=== PATIENT | female | born 2000 | race Caucasian/White ===

== ENCOUNTER 2022-08-29 11:15 | Emergency (ER) | payer OTHER, SELFPAY ==
[2022-08-29 11:48] VITALS: BP 128/80; PULSE 105; RESP 18; TEMP 36.7; O2SAT 100
--- NOTE | 2022-08-29 12:32 | ED.URI ---
HPI - URI/Sore Throat General Chief Complaint: Upper Respiratory Infection Stated Complaint: Sore Throat Time Seen by Provider: 08/29/22 12:32 History of Present Illness HPI Narrative: 21 y/o female presented for c/o sore throat worsening for 5 days. States she took amoxicillin without relief then started Augmentin yesterday. Endorses large amount of pus to the left tonsil, and pain with swallowing. Denies sick contacts or recent sexual contacts. Denies sob, wheezing, n/v/d/f/c. She is maintaining secretions. Taking ibuprofen. Related Data Home Medications Medication Instructions Recorded Confirmed amoxicillin 875 mg-potassium 1 tablet PO BID 08/29/22 08/29/22 clavulanate 125 mg tablet drospirenone 3 mg-ethinyl 1 tablet PO DAILY 08/29/22 08/29/22 estradiol 0.02 mg tablet (Loryna (28)) Allergies Allergy/AdvReac Type Severity Reaction Status Date / Time No Known Allergies Allergy Mild Verified 08/29/22 12:24 Review of Systems Review of Systems: CONSTITUTIONAL: Denies body aches, fever, chills, or sweats. EYES: Denies visual changes, redness, or discharge. ENT: Denies rhinorrhea, congestion, or otalgia. CARDIOVASCULAR: Denies chest pain, palpitations, or edema. RESPIRATORY: Denies dyspnea. GASTROINTESTINAL: Denies abdominal pain, nausea, vomiting, or diarrhea. SKIN: Denies rash, itching, or wounds. MUSCULOSKELETAL: Denies back pain, joint pain, or myalgia. NEUROLOGIC: Denies headache Exam Narrative: GENERAL: Ill-appearing, nontoxic EYES: conjunctivae clear ENT: Mucous membranes moist. TMs pearly garcia with normal light reflex bilaterally; no tragal tenderness. Oropharynx erythematous. Tonsils enlarged. Left > Right; Large amount tonsillar exudate. Hot potato voice noted, No drooling, no trismus, uvula midline. No tripod positioning or soft palate swelling. NECK: Supple. left anterior cervical lymphadenopathy CHEST: Clear to auscultation, breath sounds equal. No respiratory distress, speaks in full sentences. HEART: Regular rate and rhythm. SKIN: Warm, dry, no rash. Course Course Emergency Course: Patient is aware of diagnosis, understands and agrees to treatment plan. Anticipatory guidance given. Portions of this record may have been created with voice recognition software Level of Care: Express Care Visit Vital Signs Vital signs: Vital Signs Temperature 98.0 F 08/29/22 11:48 Pulse Rate 105 H 08/29/22 11:48 Respiratory Rate 18 08/29/22 11:48 Blood Pressure 128/80 08/29/22 11:48 Pulse Oximetry 100 08/29/22 11:48 Oxygen Delivery Room Air 08/29/22 11:48 Temperature 98.0 F 08/29/22 11:48 Pulse Rate 105 H 08/29/22 11:48 Respiratory Rate 18 08/29/22 11:48 Blood Pressure 128/80 08/29/22 11:48 Pulse Oximetry 100 08/29/22 11:48 Oxygen Delivery Room Air 08/29/22 11:48 Transfer Transfered to: [place] Transportation: Other (private vehicle) Transfer rationale: Pt is agreeable to transfer. Requests transfer to [facility] via private vehicle. Risks of transportation reviewed with pt including injury, worsening of condition and . v/u. Report called to hospital, spoke with Dr Aguiar, accepting physician. Pt is in stable condition at time of transfer. Advised to remain NPO and go directly to the hospital. MDM - URI/Sore Throat MDM Narrative Medical decision making narrative: Patient presented for c/o sore throat. Patient has been treated with amox, worsening tonsillar swelling and pain with asymmetrical tonsils on exam. Recommend ER transfer. Differential Diagnosis Differential diagnosis: Likely viral infection and pharyngitis Discharge Plan Discharge Clinical Impression: Acute tonsillitis Patient Disposition: Acute Care Hospital Condition: Stable Prescriptions: No Action drospirenone-ethinyl estradiol [Loryna (28)] 3-0.02 mg tablet 1 tablet PO DAILY Follow-up/Referrals: PHYSICIAN,DOG FOOD SHREDDER OPERATOR [Primary Care Provide
== END 2022-08-29 13:00 | disposition short-term general hospital (02) ==
PROVIDERS: Emergency Provider Nurse Practitioner Family
DX: J03.90 Acute tonsillitis, unspecified (principal)
CPT/HCPCS: 99213; G0463

== ENCOUNTER 2022-08-29 13:24 | Emergency (ER) | payer OTHER, SELFPAY ==
--- NOTE | ~2022-08-29 | CT_ITS ---
EXAMINATION: CT soft tissue neck w con DATE: 08/29/2022 18:16 INDICATION: TECHNIQUE: Computed tomography (CT) of the neck was performed with 75 mL Omnipaque-350 intravenous co ntrast. The dose-length product was 395.79 mGy-cm. COMPARISON: None FINDINGS: The thyroid gland is unremarkable. Bilateral somewhat heterogeneous palatine tonsillar enlargement, w ithout a focal well-defined fluid collection. The submandibular and parotid glands are symmetric. S ubmandibular and anterior cervical chain lymphadenopathy. There are no masses identified. The supe rior mediastinum is unremarkable. The airway is unremarkable. Parapharyngeal and pre-glottic fat planes are preserved. Normal enhancing arteries. The orbits are unremarkable. Visualized sinuses and mastoid air cells are well aerated. The lungs are clear. Regional bones are within normal lang its for age. IMPRESSION: 1. No tonsillar abscess. 2. Bilateral palatine tonsillar enlargement and edema. 3. Submandibular and anterior cervical chain lymphadenopathy. Reviewed, dictated and finalized at location K. FACTURING DEVELOPMENT ENGINEER
[2022-08-29 14:20] VITALS: BP 137/77; PULSE 114; RESP 16; TEMP 37.6; O2SAT 100
--- NOTE | 2022-08-29 14:51 | ED.URI ---
HPI - URI/Sore Throat General Chief Complaint: Upper Respiratory Infection Stated Complaint: throat pain Time Seen by Provider: 08/29/22 13:30 History of Present Illness HPI Narrative: -year-old female presents emergency room for evaluation of a sore throat. Has been experiencing with sore throat for 1. Patient told family friend who happened to be a physician that she had a sore throat so without evaluation was given amoxicillin. Patient took that for 3 days and called a family friend saying that her throat was not showing any signs of improvement. This individual then prescribed her course of Augmentin. She has been on p.o. Augmentin for 3 days with no improvement of her symptoms Related Data Home Medications Medication Instructions Recorded Confirmed amoxicillin 875 mg-potassium 1 tablet PO BID 08/29/22 08/29/22 clavulanate 125 mg tablet drospirenone 3 mg-ethinyl 1 tablet PO DAILY 08/29/22 08/29/22 estradiol 0.02 mg tablet (Loryna (28)) Allergies Allergy/AdvReac Type Severity Reaction Status Date / Time No Known Allergies Allergy Mild Verified 08/29/22 12:24 Review of Systems Review of Systems: CONSTITUTIONAL: Denies fever, chills, or sweats. EYES: Denies visual changes, redness, or discharge. ENT: Reports sore throat CARDIOVASCULAR: Denies chest pain, palpitations, or edema. RESPIRATORY: Denies cough or dyspnea. GASTROINTESTINAL: Denies abdominal pain, nausea, vomiting, or diarrhea. GENITOURINARY: Denies dysuria or hematuria. SKIN: Denies rash or itching. MUSCULOSKELETAL: Denies back pain, joint pain, or myalgia. NEUROLOGIC: Denies headache, numbness, dizziness, or weakness. PSYCHIATRIC: Denies anxiety or depression. Exam Narrative: GENERAL: Well-appearing, well-nourished, no physical limitations, and in no acute distress. HEAD: Normocephalic, atraumatic. EYES: Conjunctivae normal, PERRLA and EOMI. ENT: External nose normal, Nares clear, no rhinorrhea or epistaxis. Mucous membranes moist. Oropharynx with tonsillar hypertrophy and bilateral exudates NECK: Supple. Bilateral cervical lymphadenopathy CHEST: Clear to auscultation. No respiratory distress. No wheezes rales or rhonchi. . HEART: Regular rate and rhythm. No murmur heard. Normal peripheral pulses. EXTREMITIES: Normal range of motion. No edema. No clubbing or cyanosis SKIN: Warm, dry, no rash. No noted wounds NEURO: No focal deficits. Alert and oriented x3. MAEW. CN's II-XI intact bilaterally, normal gait PSYCH: Cooperative. Normal mood and affect. Course Vital Signs Vital signs: Vital Signs Temperature 37.6 C H 08/29/22 14:20 Pulse Rate 114 H 08/29/22 14:20 Respiratory Rate 16 08/29/22 14:20 Blood Pressure 137/77 08/29/22 14:20 Pulse Oximetry 100 08/29/22 14:20 Temperature 36.4 C L 08/29/22 18:43 Pulse Rate 94 08/29/22 18:43 Respiratory Rate 18 08/29/22 18:43 Blood Pressure 127/67 08/29/22 18:43 Pulse Oximetry 100 08/29/22 18:43 MDM - URI/Sore Throat Lab Data 08/29/22 14:53 08/29/22 14:53 Labs: Lab Results 08/29/22 08/29/22 08/29/22 Range/Units 14:27 14:53 14:53 WBC Pending RBC Pending Hgb Pending Hct Pending MCV Pending MCH Pending MCHC Pending RDW Pending Plt Count Pending MPV Pending Immature Gran % (Auto) Pending Neut % (Auto) Pending Lymph % (Auto) Pending Wilson % (Auto) Pending Eos % (Auto) Pending Baso % (Auto) Pending Lymph # (Auto) Pending Wilson # (Auto) Pending Eos # (Auto) Pending Baso # (Auto) Pending Abs Immat Gran (auto) Pending Absolute Neuts (auto) Pending Absolute Nucleated RBC Pending Nucleated RBC % Pending Sodium (137-145) mmol/L Potassium (3.4-5.0) mmol/L Chloride (98-107) mmol/L Carbon Dioxide (22-30) mmol/L Anion Gap (8-16) mmol/L BUN (7-17) mg/dL Creatinine (0.7-1.0
[2022-08-29 15:01] LABS: Strep Group A RT-PCR NOT DETECTED (Negative)
[2022-08-29] MEDS: SODIUM CHLORIDE 0.9% IV 1,000 ML 999 ML IV CONT (15:15)
[2022-08-29 18:39] LABS: Hematocrit 37.2 % (37.0-47.0); Hemoglobin 12.2 g/dL (12.0-15.0); Mean Corpuscular HGB Conc 32.8 g/dl (32-36); Mean Corpuscular Hemoglobin 30.3 pg (26-34); Mean Corpuscular Volume 92.3 fl (80-100); Mean Platelet Volume 9.5 fl (7.4-10.4); Platelet Count Result 182 k/mm3 (150-375); Red Blood Count 4.03 M/mm3 (4.2-5.4); Red Cell Distribution Width 11.9 % (11.5-14.5); White Blood Count 8.6 K/mm3 (4.5-10.0)
[2022-08-29 18:43] VITALS: BP 127/67; PULSE 94; RESP 18; TEMP 36.4; O2SAT 100
[2022-08-29 18:47] LABS: Alanine Aminotransferase 151 U/L (6-35); Albumin Level 4.6 g/dL (3.5-5.1); Alkaline Phosphatase 105 U/L (38-126); Anion Gap 12 mmol/L (8-16); Aspartate Amino Transferase 133 U/L (14-36); Bilirubin,Total 1.8 mg/dL (0.2-1.3); Blood Urea Nitrogen 8 mg/dL (7-17); Calcium 9.2 mg/dL (8.4-10.2); Carbon Dioxide 22 mmol/L (22-30); Chloride 104 mmol/L (98-107); Estimated CRCL calculation 99 ml/min; Estimated Glomerular Filt Rate > 60; Glucose 71 mg/dL (65-110); Potassium 3.4 mmol/L (3.4-5.0); Sodium 138 mmol/L (137-145)
[2022-08-29] MEDS: methylPREDNISolone SOD SUCC 125 MG VIAL IV PUSH (18:53)
[2022-08-29] MEDS: CLINDAMYCIN 600 MG/D5W 50 ML 600 MG/50 ML PIGGYBACK 100 MG IVPB (18:53)
[2022-08-29 18:56] LABS: Monoscreen Positive (Negative); Negative Monotest Control Negative (Negative); Positive Monotest Control Positive (Positive)
[2022-08-29 19:18] LABS: Atypical Lymphocytes Present; Band Neutrophils Percent 1 % (0-6); Monocytes Absolute Manual 0.25 K/mm3 (0.1-0.90); Monocytes Percent Manual 3 % (3-9); Neutrophils Absolute Manual 4.04 K/mm3 (1.7-7.2); Neutrophils Percent Manual 46 % (46-73); Platelet Estimate Adequate (Adequate); Total Cells Counted 100
[2022-08-29 19:19] LABS: Schistocytes None Seen (NORMAL)
== END 2022-08-29 19:14 | disposition home or self-care (01) ==
PROVIDERS: Emergency Provider Nurse Practitioner Family
DX: B27.10 Cytomegaloviral mononucleosis without complications (principal)
CPT/HCPCS: 36415; 70491; 80053; 85025; 86308; 87651; 96365; 96366; 96367; 96375; 99284; J0131; J2930; J7030; Q9967